=== PATIENT | female | born 1995 | race American Indian/Alaskan Native ===

== ENCOUNTER 2016-11-26 23:46 | Emergency (ER) | payer SELFPAY ==
[2016-11-27 00:43] VITALS: BP 131/58
[2016-11-27 01:18] LABS: Basophils % (Auto) 0.5 % (0.0-1.8); Eosinophils % (Auto) 1.2 % (0.0-4.3); Hematocrit 35.3 % (30.3-42.9); Hemoglobin 11.8 gm/dl (10.1-14.3); Mean Corpuscular HGB Conc 33 % (30-34); Mean Corpuscular Hemoglobin 27 pg (28-32); Mean Corpuscular Volume 82 fl (79-97); Platelet Count 347 K/mm3 (140-440); Red Blood Count 4.32 M/mm3 (3.65-5.03); Red Cell Distribution Width 12.1 % (13.2-15.2); White Blood Count 7.1 K/mm3 (4.5-11.0)
[2016-11-27 01:53] LABS: Bilirubin,Urine NEG (Negative); Blood,Urine MOD (Negative); Ketones,Urine NEG (Negative); Leukocyte Esterase,Urine NEG (Negative); Mucus,Urine FEW /HPF; Nitrite,Urine NEG (Negative); Protein,Urine <15 mg/dL mg/dL (Negative)
== END 2016-11-27 12:20 | disposition left against medical advice (07) ==
LOC: ED 23:46
DX: R10.9 Unspecified abdominal pain (principal); N93.9 Abnormal uterine and vaginal bleeding, unspecified; Z53.21 Procedure and treatment not carried out due to patient leaving prior to being seen by health care provider
CPT/HCPCS: 36415; 81001; 84702; 85025; 86850; 86900; 86901

== ENCOUNTER 2016-11-27 17:28 | Emergency (ER) | payer SELFPAY ==
--- NOTE | 2016-11-27 19:01 | Emergency Department Report ---
Chief Complaint: Vaginal Bleeding Stated Complaint: 7WKS BLEEDING AND ABD PAIN Time Seen by Provider: 11/27/16 18:58 - HPI History of Present Illness: 21 y/o female complain of vaginal bleed and abdominal cramp. .pt state she was seen last night but left due to the wait .pt state she thought she was .pt has a positive test from lab draw. - ROS Review of Systems: per HPI - Exam Vital Signs: Vital Signs 11/27/16 17:46 Temperature 98.2 F Pulse Rate 122 H Respiratory 22 Rate Blood Pressure 128/67 O2 Sat by Pulse 98 Oximetry Physical Exam: GENERAL: The patient is well-developed and well-nourished. Patient is in NAD. HENT: Normocephalic. Atraumatic. Patient has moist mucous membranes. Throat: No erythema, swelling or exudates. EYES: Extraocular motions are intact, PERRL NECK: Supple. No meningitic signs are noted. There is no adenopathy noted. CHEST/LUNGS: Clear to auscultation bilaterally. No wheezing, rales or rhonchi noted. There is no respiratory distress noted. HEART/CARDIOVASCULAR: Regular rate and rhythm. Normal S1 S2. No murmurs, rubs , clicks, or gallops. ABDOMEN: Abdomen is soft, nontender.. Bowel sounds normoactive. There is no abdominal distention. Negative rebound tenderness. : Deferred. SKIN: There is no rash. There is no edema. There is no diaphoresis. NEURO: The patient is A&Ox3. The patient has no focal neurologic deficits. MUSCULOSKELETAL: There is no tenderness or deformity. There is no limitation range of motion. PSYCH: Pt has appropriate mood and affect. MSE screening note: Focused history and physical exam performed. Due to findings the following was ordered: ED Disposition for MSE Condition: Stable
[2016-11-27 19:23] LABS: Basophils % (Auto) 0.3 % (0.0-1.8); Eosinophils % (Auto) 1.7 % (0.0-4.3); Hematocrit 35.5 % (30.3-42.9); Mean Corpuscular HGB Conc 34 % (30-34); Mean Corpuscular Hemoglobin 27 pg (28-32); Mean Corpuscular Volume 81 fl (79-97); Platelet Count 360 K/mm3 (140-440); Red Blood Count 4.37 M/mm3 (3.65-5.03); White Blood Count 5.7 K/mm3 (4.5-11.0)
[2016-11-27 19:46] LABS: Blood Urea Nitrogen 11 mg/dL (7-17); Calcium 9.3 mg/dL (8.4-10.2); Carbon Dioxide 25 mmol/L (22-30); Glucose 98 mg/dL (65-100); Potassium 4.5 mmol/L (3.6-5.0); Sodium 138 mmol/L (137-145)
[2016-11-27 19:48] LABS: Anion Gap 17 mmol/L
--- NOTE | 2016-11-27 21:04 | Ultrasound Report ---
FINAL REPORT PROCEDURE: US OB TRANSVAGINAL TECHNIQUE: Real-time transabdominal and transvaginal sonography of the uterus, placenta, amniotic fluid, adnexa, and fetus was performed with image documentation. Measurements were obtained to determine age/size. M-mode Doppler was used to document heartbeat. CPT 98851 and 22478 HISTORY: abd pain COMPARISON: No prior studies are available for comparison. FINDINGS: There is likely early IUP with mean sac diameter of 6.7 millimeters corresponding to 5 weeks 3 days gestational age. Yolk sac is seen but no pole is seen, not unusual for this early gestational age. Estimated date of delivery based on this measurement is July 27, 2017. Right ovary measures 1.9 x 1.6 x 1.5 cm. Left ovary measures 3.0 x 2.5 x 2.9 cm. 1.5 cm cyst is seen in the. Normal Doppler flow seen in the ovaries. No free pelvic fluid is seen. IMPRESSION: Likely very early IUP is seen at 5 weeks 3 days gestational age. viability is uncertain as pole is not yet identified. Correlation with serial quantitative beta HCG levels is recommended and repeat ultrasound 1-2 weeks time may be useful.
--- NOTE | 2016-11-27 21:06 | Ultrasound Report ---
FINAL REPORT PROCEDURE: US OB < = 14 WEEKS FETUS TECHNIQUE: Real-time transabdominal and transvaginal sonography of the uterus, placenta, amniotic fluid, adnexa, and fetus was performed with image documentation. Measurements were obtained to determine age/size. M-mode Doppler was used to document heartbeat. CPT 20668 and 86548 HISTORY: abd pain COMPARISON: No prior studies are available for comparison. FINDINGS: There is likely early IUP with mean sac diameter of 6.7 millimeters corresponding to 5 weeks 3 days gestational age. Yolk sac is seen but no pole is seen, not unusual for this early gestational age. Estimated date of delivery based on this measurement is July 27, 2017. Right ovary measures 1.9 x 1.6 x 1.5 cm. Left ovary measures 3.0 x 2.5 x 2.9 cm. 1.5 cm cyst is seen in the. Normal Doppler flow seen in the ovaries. No free pelvic fluid is seen. IMPRESSION: Likely very early IUP is seen at 5 weeks 3 days gestational age. viability is uncertain as pole is not yet identified. Correlation with serial quantitative beta HCG levels is recommended and repeat ultrasound 1-2 weeks time may be useful.
[2016-11-28 03:24] VITALS: BP 124/72
== END 2016-11-28 06:15 | disposition left against medical advice (07) ==
LOC: ED 17:28
DX: O46.91 Antepartum hemorrhage, unspecified, first trimester (principal); O26.891 Other specified pregnancy related conditions, first trimester; R10.9 Unspecified abdominal pain; Z53.21 Procedure and treatment not carried out due to patient leaving prior to being seen by health care provider
CPT/HCPCS: 36415; 76801; 76817; 80048; 85025; 86900; 86901

== ENCOUNTER 2016-11-28 07:49 | Emergency (ER) | payer SELFPAY ==
--- NOTE | 2016-11-28 14:56 | ED Elopement Review ---
ED Pt Elopement review - Call Back decision Pt Call Back Decision: No action required
[2016-11-28 23:02] VITALS: BP 114/66
--- NOTE | 2016-11-28 23:47 | Emergency Department Report ---
ED Female HPI - General Chief complaint: Vaginal Bleeding Stated complaint: SIX WKS W/BLEEDING Time Seen by Provider: 11/28/16 09:50 Source: patient, RN notes reviewed, old records reviewed Mode of arrival: Ambulatory Limitations: No Limitations - History of Present Illness Initial comments: This is a 21-year-old female, previously unknown to me. She is 3, para 1. Last menstrual period is October 15. Denies a history of abdominal surgeries. Patient presents to the ER with vaginal bleeding and cramping. Symptoms have been present for a week. It is no right lower quadrant pain. There is no nausea, vomiting or diarrhea. There is no chest pain or shortness of breath. Symptoms are improving. Patient denies dizziness or lightheadedness. Denies chest pain or shortness of breath. Patient presented to the ER a few days ago this week, has had multiple rounds of laboratory studies and had a pelvic ultrasound done on November 27 which demonstrated an intrauterine dated at 4 weeks and 3 days with a gestational sac. No heart rate was noted. Of note, blood type is Rh+. Also had a negative urinalysis. Patient's physical exam was unremarkable. I don't see a need to repeat her laboratory studies as she has had 2 round of laboratory studies earlier on this week. A urinalysis was negative a few days ago. She is Rh+. She is instructed to avoid sexual into see. She is instructed to start care, follow-up with a marble mason, bleeding and return precautions have been extensively reviewed. Complaint: vaginal bleeding -: Gradual Location: suprapubic Severity: moderate Quality: cramping Consistency: intermittent Improves with: none Worsens with: none Are you Now?: Yes Associated Symptoms: vaginal discharge, abdominal pain. denies: nausea/vomiting , fever/chills, headaches, loss of appetite, dysuria, hematuria, rash, seizure, shortness of breath, syncope, weakness - Related Data Sexually active: Yes Previous Rx's Medication Instructions Recorded Last Taken Type Acetaminophen/Codeine [Tylenol #3] 1 tab PO BID #7 tablet 06/04/15 Unknown Rx Nitrofurantoin [place]/M-Cryst 100 mg PO Q12HR #10 capsule 06/04/15 Unknown Rx [Macrobid CAP] Phenazopyridine HCl [Pyridium] 100 mg PO TID #6 tablet 06/04/15 Unknown Rx Doxylamine/Pyridoxine HCl 1 each PO QHS PRN #30 tablet. 11/29/16 Unknown Rx [yTson White 10-10 mg Tablet] Vit W-Ca,Fe,FA(<1 mg) 1 each PO QDAY #30 tablet 11/29/16 Unknown Rx [ Vitamins] Allergies Allergy/AdvReac Type Severity Reaction Status Date / Time No Known Allergies Allergy Verified 06/04/15 11:12 ED Review of Systems ROS: Stated complaint: SIX WKS W/BLEEDING Other details as noted in HPI Constitutional: denies: malaise, weakness Eyes: denies: vision change ENT: denies: epistaxis Respiratory: denies: cough Cardiovascular: denies: chest pain Gastrointestinal: as per HPI Genitourinary: as per HPI. denies: urgency Musculoskeletal: as per HPI Skin: denies: lesions Neurological: denies: weakness ED Past Medical Hx - Past Medical History Previous Medical History?: Yes Additional medical history: vaginal delivery x 1 - Surgical History Past Surgical History?: No - Social History Smoking Status: Never Smoker Substance Use Type: None - Medications Home Medications: Home Medications Medication Instructions Recorded Confirmed Last Taken Type Acetaminophen/Codeine [Tylenol #3] 1 tab PO BID #7 tablet 06/04/15 Unknown Rx Nitrofurantoin [place]/M-Cryst 100 mg PO Q12HR #10 capsule 06/04/15 Unknown Rx [Macrobid CAP] Phenazopyridine HCl [Pyridium] 100 mg PO TID #6 tablet 06/04/15 Unknown Rx Doxylamine/Pyridoxine HCl 1 each PO QHS PRN #30 tablet. 11/29/16 Unknown Rx [Tyson White 10-10 mg Tablet] Vit W-Ca,Fe,FA(<1 mg) 1 each PO QDAY #30 tablet 11/29/16 Unknown Rx [ Vitamins] ED Physical Exam - General Limitations: No Limitations General appearance: alert, in no apparent distress - Head Head exam: Present: atraumatic, normocephalic - Eye Eye exam: Present: normal appearance, EOMI. Absent: nystagmus - ENT ENT exam: Present: normal exam, normal orophraynx, mucous membranes moist - Neck Neck exam: Present: normal inspection, full ROM. Absent: tenderness, meningismus - Respiratory Respiratory exam: Present: normal lung sounds bilaterally. Absent: respiratory distress, wheezes, rales, rhonchi, stridor, chest wall tenderness - Cardiovascular Cardiovascular Exam: Present: regular rate, normal rhythm, normal heart sounds. Absent: bradycardia, tachycardia, irregular rhythm, systolic murmur, diastolic murmur, rubs, gallop - GI/Abdominal GI/Abdominal exam: Present: soft, normal bowel sounds. Absent: distended, tenderness, guarding, rebound, rigid, pulsatile mass - External exam: Present: normal external exam Speculum exam: Present: normal speculum exam, vaginal bleeding (minimal blood) Bi-manual exam: Present: normal bi-manual exam, other (escorted by COMPA Valentin) . Absent: cervical motion tendernes, adnexal tenderness, adnexal mass - Extremities Exam Extremities exam: Present: normal inspection, full ROM, normal capillary refill. Absent: tenderness, pedal edema, joint swelling, calf tenderness - Back Exam Back exam: Present: normal inspection, full ROM. Absent: tenderness, CVA tenderness (R), CVA tenderness (L), muscle spasm, paraspinal tenderness, vertebral tenderness - Neurological Exam Neurological exam: Present: alert, oriented X3, normal gait, other (Extraocular movements intact. Tongue midline. No facial droop. Facial sensation intact to light touch in the V1, V2, V3 distribution bilaterally. 5 and 5 strength in 4 extremities.. Sensation is intact to light touch in 4 extremities.). Absent : motor sensory deficit - Psychiatric Psychiatric exam: Present: normal affect, normal mood - Skin Skin exam: Present: warm, dry, intact, normal color. Absent: rash ED Course Vital Signs 11/28/16 11/28/16 11/29/16 08:08 22:59 00:30 Temperature 98.1 F 98.3 F Pulse Rate 112 H 96 H Respiratory 20 16 18 Rate Blood Pressure 122/72 Blood Pressure 114/66 [Left] O2 Sat by Pulse 99 100 Oximetry 11/29/16 00:47 Temperature Pulse Rate Respiratory 18 Rate Blood Pressure Blood Pressure [Left] O2 Sat by Pulse Oximetry ED Medical Decision Making - Lab Data Vital Signs 11/28/16 11/28/16 08:08 22:59 Temperature 98.1 F 98.3 F Pulse Rate 112 H 96 H Respiratory 20 16 Rate Blood Pressure 122/72 Blood Pressure 114/66 [Left] O2 Sat by Pulse 99 100 Oximetry - Differential Diagnosis miscarriage, threatened miscarriage Critical care attestation.: If time is entered above; I have spent that time in minutes in the direct care of this critically ill patient, excluding procedure time. ED Disposition Clinical Impression: Threatened miscarriage Disposition: DISCHARGED TO HOME OR SELFCARE Is pt being admited?: No Does the pt Need Aspirin: No Condition: Stable Instructions: Threatened Miscarriage (ED) Additional Instructions: Still avoid heavy lifting. Avoid strenuous physical activity. Do not engage in sexual activity. Follow-up with a marble mason within the next week to initiate care. Avoid sex and heavy lifting. Return to the ER right away with new pain, worsened pain, migration of pain, intractable nausea or vomiting, inability to tolerate liquid feeds, bleeding more than 2 pads soaked through per hour. Prescriptions: Doxylamine/Pyridoxine HCl [Tyson White 10-10 mg Tablet] 1 each PO QHS PRN #30 tablet. PRN Reason: Nausea Vit W-Ca,Fe,FA(<1 mg) [ Vitamins] 1 each PO QDAY #30 tablet Referrals: PRIMARY CAREMD [Primary Care Provider] - 3-5 Days JOSE PORRAS MD [Staff Physician] - 3-5 Days [facility] [Provider Group] - 3-5 Days [facility] [Provider Group] - 3-5 Days Forms: Work/School Release Form(ED)
[2016-11-28] MEDS ORDERED: TYLENOL PO ONE (23:48)
== END 2016-11-29 00:50 | disposition home or self-care (01) ==
LOC: ED 07:49
DX: O20.0 Threatened abortion (principal); Z3A.01 Less than 8 weeks gestation of pregnancy
CPT/HCPCS: 99283

== ENCOUNTER 2016-12-04 00:30 | Emergency (ER) | payer OTHER ==
[2016-12-04 01:46] LABS: Basophils % (Auto) 0.2 % (0.0-1.8); Hematocrit 36.8 % (30.3-42.9); Hemoglobin 12.3 gm/dl (10.1-14.3); Mean Corpuscular HGB Conc 34 % (30-34); Mean Corpuscular Hemoglobin 27 pg (28-32); Mean Corpuscular Volume 81 fl (79-97); Platelet Count 318 K/mm3 (140-440); Red Blood Count 4.52 M/mm3 (3.65-5.03); Red Cell Distribution Width 12.2 % (13.2-15.2); White Blood Count 5.7 K/mm3 (4.5-11.0)
[2016-12-04 05:16] LABS: Bilirubin,Urine NEG (Negative); Blood,Urine SM (Negative); Ketones,Urine NEG (Negative); Leukocyte Esterase,Urine NEG (Negative); Mucus,Urine 1+ /HPF; Nitrite,Urine NEG (Negative); Protein,Urine <15 mg/dL mg/dL (Negative); RBC,Urine < 1.0 /HPF (0.0-6.0)
--- NOTE | 2016-12-04 13:05 | Emergency Department Report ---
HPI - General Chief Complaint: Vaginal Bleeding Time Seen by Provider: 12/04/16 12:36 - HPI HPI: Room 2 The patient is a 21-year-old female presenting with a chief complaint of vaginal bleeding. The patient states she is and for 2 weeks his had constant vaginal bleeding and lower abdominal cramping. The patient states she came to the hospital one week ago for evaluation received blood work pelvic exam and ultrasound. The patient states she was discharged but the vaginal bleeding and cramping persisted. The patient states the cramping and bleeding has increased yesterday. The patient states she developed approximately 5 pads per day. Patient also admits to nausea Location: Pelvis Duration: 2 Weeks Quality: Cramping Severity: Moderate Modifying factors: [see above] Context: [see above] Mode of transportation: Unknown ED Past Medical Hx - Past Medical History Previous Medical History?: Yes Additional medical history: vaginal delivery x 1 - Surgical History Past Surgical History?: No - Family History Family history: no significant - Social History Smoking Status: Never Smoker Substance Use Type: None (denies illicit drug use) - Medications Home Medications: Home Medications Medication Instructions Recorded Confirmed Last Taken Type Vit W-Ca,Fe,FA(<1 mg) 1 each PO QDAY #30 tablet 11/29/16 12/04/16 Unknown Rx [ Vitamins] ED Review of Systems ROS: Stated complaint: PREG 6 WKS/VAG BLEEDING/PAIN Other details as noted in HPI Comment: All other systems reviewed and negative Constitutional: denies: chills, fever Eyes: denies: eye pain, eye discharge, vision change ENT: denies: ear pain, throat pain Respiratory: denies: cough, shortness of breath, wheezing Cardiovascular: denies: chest pain, palpitations Endocrine: no symptoms reported Gastrointestinal: abdominal pain, nausea Genitourinary: abnormal menses Musculoskeletal: back pain. denies: joint swelling, arthralgia Skin: denies: rash, lesions Neurological: denies: headache, weakness, paresthesias Psychiatric: denies: anxiety, depression Hematological/Lymphatic: denies: easy bleeding, easy bruising Physical Exam - Physical Exam Vital Signs: Vital Signs 12/04/16 12/04/16 12/04/16 00:58 04:44 12:49 Temperature 97.3 F L 97.5 F L Pulse Rate 109 H 96 H 102 H Respiratory 16 24 Rate Blood Pressure 141/67 Blood Pressure 118/63 126/56 [Left] O2 Sat by Pulse 100 100 100 Oximetry Physical Exam: GENERAL: The patient is well-developed well-nourished female lying on stretcher not appearing to be in acute distress. [] HEENT: Normocephalic. Atraumatic. Extraocular motions are intact. Patient has moist mucous membranes. NECK: Supple. Trachea midline CHEST/LUNGS: Clear to auscultation. There is no respiratory distress noted. HEART/CARDIOVASCULAR: Regular. There is no tachycardia. There is no gallop rub or murmur. ABDOMEN: Abdomen is soft, with diffuse discomfort to palpation. Patient has normal bowel sounds. There is no abdominal distention. SKIN: There is no rash. There is no edema. There is no diaphoresis. NEURO: The patient is awake, alert, and oriented. The patient is cooperative. The patient has normal speech MUSCULOSKELETAL: There is no evidence of acute injury. ED Course Vital Signs 12/04/16 12/04/16 12/04/16 00:58 04:44 12:49 Temperature 97.3 F L 97.5 F L Pulse Rate 109 H 96 H 102 H Respiratory 16 24 Rate Blood Pressure 141/67 Blood Pressure 118/63 126/56 [Left] O2 Sat by Pulse 100 100 100 Oximetry ED Medical Decision Making - Lab Data Result diagrams: 12/04/16 01:08 Laboratory Tests 12/04/16 12/04/16 12/04/16 01:08 01:08 01:10 WBC 5.7 RBC 4.52 Hgb 12.3 Hct 36.8 MCV 81 MCH 27 L MCHC 34 RDW 12.2 L Plt Count 318 Lymph % (Auto) 45.2 H [place] % (Auto) 9.8 H Eos % (Auto) 2.0 Baso % (Auto) 0.2 Lymph # 2.6 [place] # 0.6 Eos # 0.1 Baso # 0.0 Seg Neutrophils % 42.8 Seg Neutrophils # 2.4 HCG, Quant 46920 H Urine Color Urine Turbidity Urine pH Ur Specific [place] Urine Protein Urine Glucose (UA) Urine Ketones Urine Blood Urine Nitrite Urine Bilirubin Urine Urobilinogen Ur Leukocyte Esterase Urine WBC (Auto) Urine RBC (Auto) U Epithel Cells (Auto) Urine Mucus Blood Type A POSITIVE Antibody Screen Negative 12/04/16 Unknown WBC RBC Hgb Hct MCV MCH MCHC RDW Plt Count Lymph % (Auto) [place] % (Auto) Eos % (Auto) Baso % (Auto) Lymph # [place] # Eos # Baso # Seg Neutrophils % Seg Neutrophils # HCG, Quant Urine Color Yellow Urine Turbidity Clear Urine pH 5.0 Ur Specific [place] 1.025 Urine Protein <15 mg/dl Urine Glucose (UA) Neg Urine Ketones Neg Urine Blood Sm Urine Nitrite Neg Urine Bilirubin Neg Urine Urobilinogen 2.0 Ur Leukocyte Esterase Neg Urine WBC (Auto) 2.0 Urine RBC (Auto) < 1.0 U Epithel Cells (Auto) 1.0 Urine Mucus 1+ Blood Type Antibody Screen - Radiology Data Radiology results: report reviewed (pelvic ultrasound), image reviewed (pelvic ultrasound) Pelvic ultrasound (read by radiologist)- viable single intrauterine . Small subchorionic hemorrhage. Corpus luteum cyst. - Differential Diagnosis spontaneous , threatened Critical care attestation.: If time is entered above; I have spent that time in minutes in the direct care of this critically ill patient, excluding procedure time. ED Disposition Clinical Impression: Threatened miscarriage, Subchorionic hemorrhage Disposition: DISCHARGED TO HOME OR SELFCARE Is pt being admited?: No Does the pt Need Aspirin: No Condition: Stable Instructions: Threatened Miscarriage (ED) Additional Instructions: Return to the emergency department immediately should you develop worsening symptoms, fever, inability to tolerate food or liquid or any other concerns. Referrals: LUCIA MOORE MD [Staff Physician] - [facility] (Dr. Moore is an [employer]. Please follow up with him for further evaluation) Time of Disposition: 14:39
--- NOTE | 2016-12-04 13:51 | Ultrasound Report ---
ULTRASOUND OB LESS THAN 14 WEEKS ULTRASOUND OB TRANSVAGINAL HISTORY: Vaginal bleeding. TECHNIQUE: Transabdominal and transvaginal ultrasound with color and spectral doppler interrogation. The uterus measures 7.2 x 4.1 x 5.8 cm. An intrauterine gestational sac containing a small pole and yolk sac is identified. Heart rate measures 117 beats per minute. [place]-rump length correlates with a 6 week, 3 day . Estimated due date of 07/28/17. A small subchorionic hemorrhage is identified along the posterior, inferior gestational sac. The right unremarkable measuring 3.3 x 1.6 x 2.4 cm. The left ovary measures 3.1 x 3.0 x 3.2 cm and contains a corpus luteum cyst measuring 2.9 cm. Impression: Viable, single intrauterine as described. Small subchorionic hemorrhage. Corpus luteum cyst.
[2016-12-04 15:11] VITALS: BP 112/56
== END 2016-12-04 15:09 | disposition home or self-care (01) ==
LOC: ED 00:30
DX: O20.9 Hemorrhage in early pregnancy, unspecified (principal); O20.0 Threatened abortion; Z3A.01 Less than 8 weeks gestation of pregnancy
CPT/HCPCS: 36415; 76801; 76817; 81001; 84702; 85025; 86850; 86900; 86901

== ENCOUNTER 2017-03-05 16:26 | Outpatient (CLI) | payer MEDICAID ==
[2017-03-05] MEDS ORDERED: LACTATED RINGERS 1,000 ML IV ONE (18:00)
[2017-03-05] MEDS ORDERED: TYLENOL PO ONE (18:00)
[2017-03-05 18:39] LABS: Bilirubin,Urine NEG (Negative); Blood,Urine NEG (Negative); Ketones,Urine TR mg/dL (Negative); Leukocyte Esterase,Urine SM (Negative); Mucus,Urine FEW /HPF; Nitrite,Urine NEG (Negative); Protein,Urine <15 mg/dL mg/dL (Negative); Urobilinogen,Urine < 2.0 mg/dL (<2.0)
[2017-03-05] MEDS ORDERED: PHENERGAN PO ONE (19:10)
[2017-03-05] MEDS ORDERED: MORPHINE IV ONE (19:11)
[2017-03-05 19:21] VITALS: BP 117/43
== END 2017-03-05 20:16 | disposition home or self-care (01) ==
LOC: TRG 16:26
PROVIDERS: ATTEND Obstetrics & Gynecology
DX: O47.02 False labor before 37 completed weeks of gestation, second trimester (principal); Z3A.20 20 weeks gestation of pregnancy
CPT/HCPCS: 81001; 96360; 96374; J2270; J7120; Q0169

== ENCOUNTER 2017-03-11 15:07 | Outpatient (CLI) | payer MEDICAID ==
[2017-03-11 16:23] VITALS: BP 113/59
[2017-03-11] MEDS ORDERED: VISTARIL PO ONE (17:14)
== END 2017-03-11 18:15 | disposition home or self-care (01) ==
LOC: TRG 15:07 → LD 15:18 → TRG 18:15
PROVIDERS: ATTEND Obstetrics & Gynecology
DX: O47.02 False labor before 37 completed weeks of gestation, second trimester (principal); Z3A.21 21 weeks gestation of pregnancy
CPT/HCPCS: 59025; Q0177

== ENCOUNTER 2017-04-08 17:05 | Outpatient (CLI) | payer MEDICAID ==
[2017-04-08] MEDS ORDERED: LACTATED RINGERS 500 ML IV ONE (17:28)
[2017-04-08] MEDS ORDERED: PERCOCET 5/325 PO ONE (19:28)
[2017-04-08] MEDS ORDERED: LACTATED RINGERS 1,000 ML IV SCH (20:00)
--- NOTE | 2017-04-09 07:31 | Ultrasound Report ---
ULTRASOUND OB LIMITED History: Vaginal bleeding, evaluate placenta Technique: Transabdominal ultrasound with Doppler interrogation. Gestation: Single Position: Breech Amniotic Fluid: Normal LUX = 12.3 cm Placenta: Anterior Placental Grade: 2 No evidence for abruption. Heart Rate: 143 BPM Cervical length: 3.8 cm (Normal > 3 cm)
== END 2017-04-08 20:38 | disposition home or self-care (01) ==
LOC: TRG 17:05
PROVIDERS: ATTEND Obstetrics & Gynecology
DX: O47.02 False labor before 37 completed weeks of gestation, second trimester (principal); Z3A.25 25 weeks gestation of pregnancy
CPT/HCPCS: 76815; 96360; J7120

== ENCOUNTER 2017-04-28 19:09 | Outpatient (CLI) | payer MEDICAID ==
[2017-04-28] MEDS ORDERED: LACTATED RINGERS 500 ML IV ONE (20:00)
[2017-04-28 21:04] VITALS: BP 117/62
[2017-04-28 21:21] LABS: Bilirubin,Urine NEG (Negative); Blood,Urine NEG (Negative); Ketones,Urine NEG (Negative); Leukocyte Esterase,Urine LG (Negative); Mucus,Urine 1+ /HPF; Nitrite,Urine NEG (Negative); Protein,Urine <15 mg/dL mg/dL (Negative)
== END 2017-04-28 21:55 | disposition home or self-care (01) ==
LOC: TRG 19:09
PROVIDERS: ATTEND Obstetrics & Gynecology
DX: O42.90 Premature rupture of membranes, unspecified as to length of time between rupture and onset of labor, unspecified weeks of gestation (principal); O24.913 Unspecified diabetes mellitus in pregnancy, third trimester; O26.893 Other specified pregnancy related conditions, third trimester; R10.9 Unspecified abdominal pain; Z3A.29 29 weeks gestation of pregnancy
CPT/HCPCS: 59025; 81001

== ENCOUNTER 2017-11-07 15:30 | Emergency (ER) | payer SELFPAY ==
[2017-11-07 16:04] VITALS: BP 116/66
[2017-11-07 16:38] LABS: HCG Qualitative,Urine Negative (Negative)
== END 2017-11-08 01:05 | disposition left against medical advice (07) ==
LOC: ED 15:30
DX: Z53.21 Procedure and treatment not carried out due to patient leaving prior to being seen by health care provider (principal)
CPT/HCPCS: 81025; 87116; 87430

== ENCOUNTER 2020-05-07 12:31 | Emergency (ER) | payer SELFPAY ==
[2020-05-07 12:46] VITALS: BP 124/84
--- NOTE | 2020-05-07 12:49 | Emergency Department Report ---
ED ENT HPI - General Chief complaint: Dental/Oral Stated complaint: TOOTH ABSCESS Time Seen by Provider: 05/07/20 12:46 Source: patient Mode of arrival: Ambulatory Limitations: No Limitations - History of Present Illness MD complaint: tooth pain -: Gradual, year(s) Location: tooth # (multiple dental trauma areas due to caries over the years) Severity: mild, moderate Quality: aching, dull Consistency: intermittent Improves with: none Worsens with: eating Associated Symptoms: toothache. denies: pain with swallowing, sore throat, discharge from ear, rhinorrhea - Related Data Previous Rx's Medication Instructions Recorded Last Taken Type Vit Calc,Iron,Folic 1 each PO QDAY #30 tablet 11/29/16 03/04/17 12:00 Rx [ Vitamins] 1 Allergies Allergy/AdvReac Type Severity Reaction Status Date / Time No Known Allergies Allergy Verified 03/05/17 16:46 ED Dental HPI - General Chief complaint: Dental/Oral Stated complaint: TOOTH ABSCESS Time Seen by Provider: 05/07/20 12:46 Source: patient Mode of arrival: Ambulatory Limitations: No Limitations - Related Data Previous Rx's Medication Instructions Recorded Last Taken Type Vit Calc,Iron,Folic 1 each PO QDAY #30 tablet 11/29/16 03/04/17 12:00 Rx [ Vitamins] 1 Allergies Allergy/AdvReac Type Severity Reaction Status Date / Time No Known Allergies Allergy Verified 03/05/17 16:46 ED Review of Systems ROS: Stated complaint: TOOTH ABSCESS Other details as noted in HPI Comment: All other systems reviewed and negative ED Past Medical Hx - Past Medical History Previous Medical History?: No Hx Hypertension: No Hx Diabetes: No Hx Deep Vein Thrombosis: No Hx Renal Disease: No Hx Sickle Cell Disease: No Hx Seizures: No Hx Asthma: No Hx HIV: No Additional medical history: vaginal delivery x 1 - Surgical History Past Surgical History?: No - Social History Smoking Status: Never Smoker Substance Use Type: None - Medications Home Medications: Home Medications Medication Instructions Recorded Confirmed Last Taken Type Vit Calc,Iron,Folic 1 each PO QDAY #30 tablet 11/29/16 03/05/17 03/04/17 12:00 Rx [ Vitamins] 1 ED Physical Exam - General Limitations: No Limitations - Head Head exam: Present: atraumatic, normocephalic - Eye Eye exam: Present: normal appearance - ENT ENT exam: Present: mucous membranes moist, other (diffuse dental caries and errosion. gingival irritation noted. no abscess. tongue and uvula midline. no exudate. ) - Neck Neck exam: Present: full ROM ED Course Vital Signs 05/07/20 12:41 Temperature 98.7 F Pulse Rate 75 Respiratory 16 Rate Blood Pressure 124/84 O2 Sat by Pulse 100 Oximetry Critical care attestation.: If time is entered above; I have spent that time in minutes in the direct care of this critically ill patient, excluding procedure time. ED Disposition Clinical Impression: Dentalgia, Dental caries Disposition: Z- MED SCREENING EXAM-LEFT Is pt being admited?: No Does the pt Need Aspirin: No Condition: Stable Instructions: Dental Caries (ED), Toothache (ED) Referrals: [facility] [Outside] - 3-5 Days
== END 2020-05-07 13:11 | disposition left against medical advice (07) ==
LOC: ED 12:31
DX: K08.89 Other specified disorders of teeth and supporting structures (principal); Z53.21 Procedure and treatment not carried out due to patient leaving prior to being seen by health care provider
CPT/HCPCS: 99282

== ENCOUNTER 2021-10-16 15:06 | Emergency (ER) | payer SELFPAY ==
[2021-10-16 15:37] VITALS: BP 109/56
[2021-10-16] MEDS ORDERED: ACETAMINOPHEN 500 MG TAB PO ONE (18:31)
[2021-10-16] MEDS ORDERED: SODIUM CHLORIDE 0.9% 1000 ML IV SOLN IV ONE (18:31)
[2021-10-16] MEDS ORDERED: KETOROLAC 30 MG/1 ML INJ IV ONE (18:52)
[2021-10-16 18:53] LABS: Basophils # (Auto) 0.1 K/mm3 (0.0-0.1); Basophils % (Auto) 0.4 % (0.0-1.8); Hematocrit 32.3 % (30.3-42.9); Hemoglobin 9.9 gm/dl (10.1-14.3); Lymphocytes # (Auto) 1.7 K/mm3 (1.2-5.4); Lymphocytes % (Auto) 11.2 % (13.4-35.0); Mean Corpuscular HGB Conc 31 % (30-34); Mean Corpuscular Volume 74 fl (79-97); Monocytes % (Auto) 6.5 % (0.0-7.3); Platelet Count 232 K/mm3 (140-440); Red Blood Count 4.34 M/mm3 (3.65-5.03)
[2021-10-16] MEDS ORDERED: ONDANSETRON 4 MG/2 ML INJ IV ONE (19:06)
[2021-10-16 19:10] LABS: Alanine Aminotransferase 7 units/L (7-56); Albumin 4.5 g/dL (3.9-5); BUN/Creatinine Ratio 11; Blood Urea Nitrogen 8 mg/dL (7-17); Calcium 9.2 mg/dL (8.4-10.2); Hemolysis Index 10
[2021-10-16] MEDS ORDERED: POTASSIUM CHLORIDE ER 20 MEQ TAB PO ONE (19:30)
--- NOTE | 2021-10-16 20:08 | Emergency Department Report ---
ED Abdominal Pain HPI - General Chief Complaint: Abdominal Pain Stated Complaint: Abdominal Pain Time Seen by Provider: 10/16/21 18:30 Source: patient Mode of arrival: Ambulatory Limitations: No Limitations - History of Present Illness Initial Comments: 26-year-old female with no significant past medical history presents to the hospital complaining of right flank pain and fever for the past 3 days. Patient rates her right flank pain which is now spread to her lower abdomen. She also complains of a headache, nausea, and decreased appetite. Denies cough, chest pain, shortness of breath, dysuria, urinary frequency, vaginal discharge, or concern for STD. She is sexually active with one partner and does not use condoms. She denies known sick contacts. She is unvaccinated for Covid. He denies loss of sense of taste or smell. she denies previous abdominal surgeries Severity scale (0 -10): 10 - Related Data Previous Rx's Medication Instructions Recorded Last Taken Type Vit Calc,Iron,Folic 1 each PO QDAY #30 tablet 11/29/16 03/04/17 12:00 Rx [ Vitamins] 1 Ondansetron [Zofran ODT TAB] 8 mg PO Q8HR PRN #20 tab.rapdis 10/16/21 Unknown Rx cephALEXin [Keflex] 500 mg PO Q8HR #21 cap 10/16/21 Unknown Rx Allergies Allergy/AdvReac Type Severity Reaction Status Date / Time No Known Allergies Allergy Verified 03/05/17 16:46 ED Review of Systems ROS: Stated complaint: Abdominal Pain Other details as noted in HPI Comment: All other systems reviewed and negative ED Past Medical Hx - Past Medical History Hx Hypertension: No Hx Diabetes: No Hx Deep Vein Thrombosis: No Hx Renal Disease: No Hx Sickle Cell Disease: No Hx Seizures: No Hx Asthma: No Hx HIV: No Additional medical history: vaginal delivery x 1 - Social History Smoking Status: Never Smoker Substance Use Type: None - Medications Home Medications: Home Medications Medication Instructions Recorded Confirmed Last Taken Type Vit Calc,Iron,Folic 1 each PO QDAY #30 tablet 11/29/16 03/05/17 12:00 Rx [ Vitamins] 1 Ondansetron [Zofran ODT TAB] 8 mg PO Q8HR PRN #20 tab.rapdis 10/16/21 Unknown Rx cephALEXin [Keflex] 500 mg PO Q8HR #21 cap 10/16/21 Unknown Rx ED Physical Exam - General Limitations: No Limitations - Other Other exam information: General: No acute distress Head: Atraumatic Eyes: normal appearance ENT: Moist mucous membranes Neck: Normal appearance, no midline tenderness Chest: Clear to auscultation bilaterally CV: Regular rate and rhythm Abdomen: Soft, normal bowel sounds, mild lower and upper abdominal tenderness, nondistended, no rebound or guarding Back: Normal inspection, right CVA tenderness Extremity: Normal inspection, full range of motion Neuro: Alert O x 3, no facial asymmetry, speech clear, no gross motor sensory deficit Psych: Appropriate behavior Skin: No rash ED Course Vital Signs 10/16/21 15:36 Temperature 103.0 F H Pulse Rate 114 H Respiratory 16 Rate Blood Pressure 109/56 O2 Sat by Pulse 98 Oximetry ED Medical Decision Making - Lab Data Result diagrams: 10/16/21 18:34 10/16/21 18:34 Lab Results 10/16/21 10/16/21 10/16/21 Range/Units 18:34 18:34 18:34 WBC 15.0 H (4.5-11.0) K/mm3 RBC 4.34 (3.65-5.03) M/mm3 Hgb 9.9 L (10.1-14.3) gm/dl Hct 32.3 (30.3-42.9) % MCV 74 L (79-97) fl MCH 23 L (28-32) pg MCHC 31 (30-34) % RDW 18.0 H (13.2-15.2) % Plt Count 232 (140-440) K/mm3 Lymph % (Auto) 11.2 L (13.4-35.0) % [place] % (Auto) 6.5 (0.0-7.3) % Eos % (Auto) 0.0 (0.0-4.3) % Baso % (Auto) 0.4 (0.0-1.8) % Lymph # (Auto) 1.7 (1.2-5.4) K/mm3 [place] # (Auto) 1.0 H (0.0-0.8) K/mm3 Eos # (Auto) 0.0 (0.0-0.4) K/mm3 Baso # (Auto) 0.1 (0.0-0.1) K/mm3 Seg Neutrophils % 81.9 H (40.0-70.0) % Seg Neutrophils # 12.3 H (1.8-7.7) K/mm3 Sodium 132 L (137-145) mmol/L Potassium 3.2 L (3.6-5.0) mmol/L Chloride 95.2 L (98-107) mmol/L Carbon Dioxide 19 L (22-30) mmol/L Anion Gap 21 mmol/L BUN 8 (7-17) mg/dL Creatinine 0.7 (0.6-1.2) mg/dL Estimated GFR > 60 ml/min BUN/Creatinine Ratio 11 % Glucose 97 (65-100) mg/dL Lactic Acid 1.00 (0.7-2.0) mmol/L Calcium 9.2 (8.4-10.2) mg/dL Total Bilirubin 2.20 H (0.1-1.2) mg/dL AST 21 (5-40) units/L ALT 7 (7-56) units/L Alkaline Phosphatase 65 (35-129) units/L Total Protein 7.6 (6.3-8.2) g/dL Albumin 4.5 (3.9-5) g/dL Albumin/Globulin Ratio 1.5 % HCG, Qual (Negative) Urine Color (Yellow) Urine Turbidity (Clear) Urine pH (5.0-7.0) Ur Specific [place] (1.003-1.030) Urine Protein (Negative) mg/dL Urine Glucose (UA) (Negative) mg/dL Urine Ketones (Negative) mg/dL Urine Blood (Negative) Urine Nitrite (Negative) Urine Bilirubin (Negative) Urine Urobilinogen (<2.0) mg/dL Ur Leukocyte Esterase (Negative) Urine WBC (Auto) (0.0-6.0) /HPF Urine RBC (Auto) (0.0-6.0) /HPF U Epithel Cells (Auto) (0-13.0) /HPF Urine Bacteria (Auto) (Negative) /HPF Urine Mucus /HPF Urine Yeast (Budding) /HPF 10/16/21 10/16/21 10/16/21 Range/Units 18:34 21:09 Unknown WBC (4.5-11.0) K/mm3 RBC (3.65-5.03) M/mm3 Hgb (10.1-14.3) gm/dl Hct (30.3-42.9) % MCV (79-97) fl MCH (28-32) pg MCHC (30-34) % RDW (13.2-15.2) % Plt Count (140-440) K/mm3 Lymph % (Auto) (13.4-35.0) % [place] % (Auto) (0.0-7.3) % Eos % (Auto) (0.0-4.3) % Baso % (Auto) (0.0-1.8) % Lymph # (Auto) (1.2-5.4) K/mm3 [place] # (Auto) (0.0-0.8) K/mm3 Eos # (Auto) (0.0-0.4) K/mm3 Baso # (Auto) (0.0-0.1) K/mm3 Seg Neutrophils % (40.0-70.0) % Seg Neutrophils # (1.8-7.7) K/mm3 Sodium (137-145) mmol/L Potassium (3.6-5.0) mmol/L Chloride (98-107) mmol/L Carbon Dioxide (22-30) mmol/L Anion Gap mmol/L BUN (7-17) mg/dL Creatinine (0.6-1.2) mg/dL Estimated GFR ml/min BUN/Creatinine Ratio % Glucose (65-100) mg/dL Lactic Acid 0.70 (0.7-2.0) mmol/L Calcium (8.4-10.2) mg/dL Total Bilirubin (0.1-1.2) mg/dL AST (5-40) units/L ALT (7-56) units/L Alkaline Phosphatase (35-129) units/L Total Protein (6.3-8.2) g/dL Albumin (3.9-5) g/dL Albumin/Globulin Ratio % HCG, Qual Negative (Negative) Urine Color Yellow (Yellow) Urine Turbidity Slightly-cloudy (Clear) Urine pH 5.0 (5.0-7.0) Ur Specific [place] 1.015 (1.003-1.030) Urine Protein 100 mg/dl (Negative) mg/dL Urine Glucose (UA) Neg (Negative) mg/dL Urine Ketones 20 (Negative) mg/dL Urine Blood Sm (Negative) Urine Nitrite Neg (Negative) Urine Bilirubin Neg (Negative) Urine Urobilinogen 2.0 (<2.0) mg/dL Ur Leukocyte Esterase Sm (Negative) Urine WBC (Auto) 52.0 H (0.0-6.0) /HPF Urine RBC (Auto) 4.0 (0.0-6.0) /HPF U Epithel Cells (Auto) 8.0 (0-13.0) /HPF Urine Bacteria (Auto) 4+ (Negative) /HPF Urine Mucus Few /HPF Urine Yeast (Budding) 1+ /HPF - Medical Decision Making 27-year-old female with fever and abdominal pain. Code sepsis initiated. Treated with normal saline, Toradol, Tylenol, and Zofran. Patient signed out to Dr. Angela CT abdomen and pelvis and UA pending Critical Care Time: No Critical care attestation.: If time is entered above; I have spent that time in minutes in the direct care of this critically ill patient, excluding procedure time. ED Disposition Clinical Impression: Pyelonephritis, Generalized abdominal pain Disposition: 01 HOME / SELF CARE / HOMELESS Is pt being admited?: No Condition: Stable Instructions: Pyelonephritis, Adult, Abdominal Pain (ED) Additional Instructions: Drink plenty water. Return for problems. Take the antibiotics. Follow-up with your regular doctor for recheck and further management. Prescriptions: cephALEXin [Keflex] 500 mg PO Q8HR #21 cap Ondansetron [Zofran ODT TAB] 8 mg PO Q8HR PRN #20 tab.rapdis PRN Reason: Nausea Referrals: BENJAMIN TORRES MD [Primary Care Provider] - 3-5 Days LUIS MIGUEL OKEEFE MD [Staff Physician] - 3-5 Days
--- NOTE | 2021-10-16 20:27 | Emergency Department Report ---
Blank Doc - Documentation Documentation: 2024-CT pending. 2134-UA was noted. Rocephin was ordered. CT is pending. 2299-CT was noted and the patient was discharged.
[2021-10-16 21:01] LABS: Bacteria,Urine 4+ /HPF (Negative); Bilirubin,Urine NEG (Negative); Blood,Urine SM (Negative); Color,Urine Yellow (Yellow); Mucus,Urine FEW /HPF
[2021-10-16] MEDS ORDERED: ONDANSETRON 4 MG/2 ML INJ ONE (21:22)
[2021-10-16] MEDS ORDERED: cefTRIAXone/NS 1 GM/50 ML 1 GM/50 ML BAG IV ONE (21:34)
--- NOTE | 2021-10-16 21:51 | Cat Scan Report ---
CT ABDOMEN AND PELVIS WITH CONTRAST INDICATION: right sided abd pain, fever. TECHNIQUE: Axial CT images were obtained through the abdomen and pelvis after 100 cc Omnipaque [address] scans at this location are performed using CT dose reduction for ALARA by means of automated exposure control. COMPARISON: None available. FINDINGS: LOWER CHEST: No significant abnormality. LIVER: No significant abnormality. GALLBLADDER: No significant abnormality. BILE DUCTS: No significant abnormality. PANCREAS: No significant abnormality. SPLEEN: No significant abnormality. ADRENALS: No significant abnormality. RIGHT KIDNEY and URETER: Striated appearance of right kidney characteristic for pyelonephritis. LEFT KIDNEY and URETER: No significant abnormality. STOMACH and SMALL BOWEL: No significant abnormality. COLON: No significant abnormality. APPENDIX: No significant abnormality. PERITONEUM: No free fluid. No free air. No fluid collection. LYMPH NODES: No significant adenopathy. AORTA and ARTERIES: No significant abnormality. IVC and VEINS: No significant abnormality. URINARY BLADDER: No significant abnormality. REPRODUCTIVE ORGANS: 2.5 cm right ovarian corpus luteal cyst with small amount of free pelvic fluid ADDITIONAL FINDINGS: None. SKELETAL SYSTEM: No significant abnormality. IMPRESSION: 1. Right-sided pyelonephritis. No renal abscess or hydronephrosis 2 ruptured 2.5 cm right ovarian corpus luteal cyst with small amount of free pelvic fluid. Signer Name: Brenton Will MD Signed: 10/16/2021 9:47 PM Workstation Name: [id number]
== END 2021-10-16 23:00 | disposition home or self-care (01) ==
LOC: ED 15:06
DX: R50.9 Fever, unspecified (principal); R10.9 Unspecified abdominal pain; Z79.899 Other long term (current) drug therapy
CPT/HCPCS: 36415; 74177; 80053; 81001; 82140; 84703; 85025; 87040; 87076; 87086; 87186; 96361; 96365; 96375; 99284; J0696; J1885; J2405; J7030; Q9967; Q0162

== ENCOUNTER 2022-07-07 07:13 | Emergency (ER) | payer SELFPAY ==
[2022-07-07 07:31] VITALS: BP 121/70
--- NOTE | 2022-07-07 10:22 | Emergency Department Report ---
ED General Adult HPI - General Chief complaint: Dental/Oral Stated complaint: TOOTHACHE/NECK PAIN Time Seen by Provider: 07/07/22 10:09 Source: patient Mode of arrival: Ambulatory Limitations: No Limitations - History of Present Illness Initial comments: 27-year-old female no significant past medical history reports to the ER with complaints of left lower dental pain since yesterday. Patient reports taking [id number] medication with no relief. Patient reports no other acute signs or symptoms at this time. No concerns with airway. Severity scale (0 -10): 8 - Related Data Previous Rx's Medication Instructions Recorded Last Taken Type Vit Calc,Iron,Folic 1 each PO QDAY #30 tablet 11/29/16 03/04/17 12:00 Rx [ Vitamins] 1 Ondansetron [Zofran ODT TAB] 8 mg PO Q8HR PRN #20 tab.rapdis 10/16/21 Unknown Rx cephALEXin [Keflex] 500 mg PO Q8HR #21 cap 10/16/21 Unknown Rx Acetaminophen/Codeine [Tylenol 1 tab PO Q6H PRN 2 Days #8 tab 07/07/22 Unknown Rx /Codeine # 3 tab] Amoxicillin/K Clav Tab [Augmentin 1 tab PO Q12HR 7 Days #14 tab 07/07/22 Unknown Rx 875 mg] Allergies Allergy/AdvReac Type Severity Reaction Status Date / Time No Known Allergies Allergy Verified 03/05/17 16:46 ED Review of Systems ROS: Stated complaint: TOOTHACHE/NECK PAIN Other details as noted in HPI Constitutional: denies: chills, fever Eyes: denies: eye pain, eye discharge, vision change ENT: dental pain. denies: ear pain, throat pain Respiratory: denies: cough, shortness of breath, wheezing Cardiovascular: denies: chest pain, palpitations Endocrine: no symptoms reported Gastrointestinal: denies: abdominal pain, nausea, diarrhea Genitourinary: denies: urgency, dysuria, discharge Musculoskeletal: denies: back pain, joint swelling, arthralgia Skin: denies: rash, lesions Neurological: denies: headache, weakness, paresthesias Psychiatric: denies: anxiety, depression Hematological/Lymphatic: denies: easy bleeding, easy bruising ED Past Medical Hx - Past Medical History Previous Medical History?: No Hx Hypertension: No Hx Diabetes: No Hx Deep Vein Thrombosis: No Hx Renal Disease: No Hx Sickle Cell Disease: No Hx Seizures: No Hx Asthma: No Hx HIV: No Additional medical history: vaginal delivery x 1 - Social History Smoking Status: Never Smoker Substance Use Type: None - Medications Home Medications: Home Medications Medication Instructions Recorded Confirmed Last Taken Type Vit Calc,Iron,Folic 1 each PO QDAY #30 tablet 11/29/16 03/05/17 03/04/17 12:00 Rx [ Vitamins] 1 Ondansetron [Zofran ODT TAB] 8 mg PO Q8HR PRN #20 tab.rapdis 10/16/21 Unknown Rx cephALEXin [Keflex] 500 mg PO Q8HR #21 cap 10/16/21 Unknown Rx Acetaminophen/Codeine [Tylenol 1 tab PO Q6H PRN 2 Days #8 tab 07/07/22 Unknown Rx /Codeine # 3 tab] Amoxicillin/K Clav Tab [Augmentin 1 tab PO Q12HR 7 Days #14 tab 07/07/22 U nknown Rx 875 mg] ED Physical Exam - General Limitations: No Limitations General appearance: alert, in no apparent distress - Head Head exam: Present: atraumatic, normocephalic - Eye Eye exam: Present: normal appearance - ENT ENT exam: Present: mucous membranes moist, other (Left lower dental pain with small abscess to the gumline. Abscess is too small to perform I&D and now.) - Neck Neck exam: Present: normal inspection - Respiratory Respiratory exam: Present: normal lung sounds bilaterally. Absent: respiratory distress - Cardiovascular Cardiovascular Exam: Present: regular rate, normal rhythm. Absent: systolic murmur, diastolic murmur, rubs, gallop - GI/Abdominal GI/Abdominal exam: Present: soft, normal bowel sounds - Extremities Exam Extremities exam: Present: normal inspection - Back Exam Back exam: Present: normal inspection - Neurological Exam Neurological exam: Present: alert, oriented X3 - Psychiatric Psychiatric exam: Present: normal affect, normal mood - Skin Skin exam: Present: warm, dry, intact, normal color. Absent: rash ED Course Vital Signs 07/07/22 07/07/22 07:29 11:04 Temperature 98.8 F 98.8 F Pulse Rate 86 86 Respiratory 18 18 Rate Blood Pressure 121/70 Blood Pressure 121/70 [Left] O2 Sat by Pulse 100 100 Oximetry ED Medical Decision Making - Medical Decision Making 27-year-old female reports to the ER with left lower dental pain with swelling that started since yesterday. On physical exam patient has a small abscess within her mouth on her left lower gum anterior side. Abscess is not negative for drainage. Patient will be treated with oral antibiotics and given pain medicine for pain relief. Patient agrees with plan of care verbalized understanding. Patient informed to follow-up with her local dentist for further evaluation of dental care. Patient agrees with plan of care and verbalized understanding. Patient stable for discharge home. Vital Signs 07/07/22 07/07/22 07:29 11:04 Temperature 98.8 F 98.8 F Pulse Rate 86 86 Respiratory 18 18 Rate Blood Pressure 121/70 Blood Pressure 121/70 [Left] O2 Sat by Pulse 100 100 Oximetry Critical care attestation.: If time is entered above; I have spent that time in minutes in the direct care of this critically ill patient, excluding procedure time. ED Disposition Clinical Impression: Dental abscess Disposition: HOME / SELF CARE / HOMELESS Is pt being admited?: No Condition: Stable Instructions: Dental Abscess Prescriptions: Amoxicillin/K Clav Tab [Augmentin 875 mg] 1 tab PO Q12HR 7 Days #14 tab Acetaminophen/Codeine [Tylenol /Codeine # 3 tab] 1 tab PO Q6H PRN 2 Days #8 tab PRN Reason: Pain , Severe (7-10) Referrals: ADRIAN DE PAZ MD [Primary Care Provider] - 3-5 Days Forms: Work/School Release Form(ED)
== END 2022-07-07 11:06 | disposition home or self-care (01) ==
LOC: ED 07:13
DX: K04.7 Periapical abscess without sinus (principal); Z79.899 Other long term (current) drug therapy
CPT/HCPCS: 99282